=== PATIENT | female | born 1985 | race Caucasian/White ===

== ENCOUNTER 2016-12-03 06:44 | Inpatient (IN) | payer OTHER ==
[~2016-12-03] VITALS: Ht 160 cm; Wt 94.1 kg
[2016-12-03] VITALS (31 sets, daily range): BP systolic 105–152; BP diastolic 54–102
[2016-12-03 09:02] LABS: EOSINOPHIL (%) 0.7 % (0-5); EOSINOPHIL COUNT 0.1 K/uL (0-0.3); HEMATOCRIT 36.6 % (36.0-46.0); IMMATURE GRANULOCYTE (%) 0.7 % (0.0-0.7); IMMATURE GRANULOCYTE COUNT 0.1 K/uL; INSTRUMENT ABS NEUTROPHIL CT 5.7 K/uL; LYMPHOCYTE COUNT 1.9 K/uL (1.0-2.8); MCH 30.5 PG (29.0-34.0); MCHC 33.9 G/DL (30.0-36.0); MCV 90.1 FL (83-99); MEAN PLAT.VOLUME 11.4 uM^3 (9.5-12.4); MONOCYTE (%) 6.9 % (3-12); MONOCYTE COUNT 0.6 K/uL (0-0.8); NEUTROPHIL (%) 69.1 % (45-76); NEUTROPHIL COUNT 5.7 K/uL (1.8-6.4); PLATELET COUNT 201 K/uL (156-360); RBC DIS.WIDTH-CV 12.1 % (11.8-14.6); RBC DIS.WIDTH-SD 39.7 % (39-53); RED BLOOD COUNT 4.06 M/uL (3.80-5.20); WHITE BLOOD COUNT 8.3 K/uL (4.1-10.2)
[2016-12-04] VITALS (9 sets, daily range): BP systolic 100–121; BP diastolic 58–68
[2016-12-04 06:26] LABS: EOSINOPHIL (%) 0 % (0-5); HEMATOCRIT 27.9 % (36.0-46.0); IMMATURE GRANULOCYTE (%) 0.5 % (0.0-0.7); IMMATURE GRANULOCYTE COUNT 0.1 K/uL; INSTRUMENT ABS NEUTROPHIL CT 14.1 K/uL; LYMPHOCYTE COUNT 0.7 K/uL (1.0-2.8); MCH 30.9 PG (29.0-34.0); MCHC 34.1 G/DL (30.0-36.0); MCV 90.9 FL (83-99); MEAN PLAT.VOLUME 11.5 uM^3 (9.5-12.4); MONOCYTE (%) 3.8 % (3-12); MONOCYTE COUNT 0.6 K/uL (0-0.8); NEUTROPHIL (%) 91.1 % (45-76); NEUTROPHIL COUNT 14.1 K/uL (1.8-6.4); PLATELET COUNT 180 K/uL (156-360); RBC DIS.WIDTH-CV 12.3 % (11.8-14.6); RBC DIS.WIDTH-SD 40.7 % (39-53)
[2016-12-04 07:25] LABS: RED BLOOD COUNT 3.07 M/uL (3.80-5.20); WHITE BLOOD COUNT 15.4 K/uL (4.1-10.2)
[2016-12-05 03:00] VITALS: BP 103/57
[2016-12-05 07:05] VITALS: BP 108/53
[2016-12-05 14:35] VITALS: BP 124/61
[2016-12-05 19:13] VITALS: BP 116/67
[2016-12-05 22:42] VITALS: BP 112/64
[2016-12-06 03:19] VITALS: BP 107/59
[2016-12-06 07:17] VITALS: BP 113/73
[2016-12-06 11:00] VITALS: BP 118/70
[2016-12-06 19:00] VITALS: BP 118/60
[2016-12-06 23:00] VITALS: BP 116/59
[2016-12-07 03:23] VITALS: BP 109/63
[2016-12-07 07:14] VITALS: BP 86/57
[2016-12-07] MEDS ORDERED: PERCOCET 5/31 TABLET PO (09:36)
[2016-12-07] MEDS ORDERED: DOCUSATE SODIU100 MG PO (09:36)
[2016-12-07] MEDS ORDERED: IBUPROFEN800 MG PO (09:36)
[2016-12-07] MEDS ORDERED: VITAMIN C500 M1 PO (09:38)
[2016-12-07] MEDS ORDERED: FERROUS SULFAT325 MG PO (09:38)
[2016-12-07 11:00] VITALS: BP 124/75
== END 2016-12-07 13:26 | disposition home or self-care (01) | DRG 765 ==
LOC: LDRP-OP → 2WEST 06:45 → LDRP-OP 15:40 → 2WEST 22:09 → LDRP-OP 01-08 16:05
PROVIDERS: Obstetrics & Gynecology
DX: O76 Abnormality in fetal heart rate and rhythm complicating labor and delivery (principal); O99.03 Anemia complicating the puerperium; D62 Acute posthemorrhagic anemia; O69.89X0 Labor and delivery complicated by other cord complications, not applicable or unspecified; O69.82X0 Labor and delivery complicated by other cord entanglement, without compression, not applicable or unspecified; O99.62 Diseases of the digestive system complicating childbirth; K21.9 Gastro-esophageal reflux disease without esophagitis; O99.214 Obesity complicating childbirth; E66.9 Obesity, unspecified; Z68.33 Body mass index [BMI] 33.0-33.9, adult; Z37.0 Single live birth; Z3A.39 39 weeks gestation of pregnancy
CPT/HCPCS: 85025; 86850; 86900; 86901; 88307; C1755; J0595; J0690; J1100; J1200; J2175; J2274; J2405; J3010; J3105; J7120; Q0169

== ENCOUNTER 2017-12-26 16:46 | Emergency (ER) | payer OTHER ==
[~2017-12-26] VITALS: Ht 160 cm; Wt 98.2 kg
[~2017-12-26 16:46] MED LIST: DOCUSATE SODIU100 MG PO; FERROUS SULFAT325 MG PO; IBUPROFEN800 MG PO; PERCOCET 5/31 TABLET PO; VITAMIN C500 M1 PO
[2017-12-26 19:26] LABS: HEMATOCRIT 39.9 % (36.0-46.0); HEMOGLOBIN 13.9 G/DL (11.9-15.5); MCH 30.3 PG (29.0-34.0); MCHC 34.8 G/DL (30.0-36.0); MCV 87.1 FL (83-99); PLATELET COUNT 275 K/uL (156-360); RBC DIS.WIDTH-SD 38.5 % (39-53); RED BLOOD COUNT 4.58 M/uL (3.80-5.20); WHITE BLOOD COUNT 10.7 K/uL (4.1-10.2)
[2017-12-26 19:37] LABS: CHLORIDE 105 mEq/L (99-109); SODIUM 140 mEq/L (136-147)
[2017-12-26 19:39] LABS: GLUCOSE 84 mg/dL (70-99)
[2017-12-26 19:42] LABS: CREATININE 0.7 mg/dL (0.6-1.3); GFR ESTIMATE (CALCULATED) > 59 mL/min/
[2017-12-26 19:43] LABS: UREA NITROGEN (BUN) 11 mg/dL (9-23)
[2017-12-26 19:51] LABS: QUANTITATIVE HCG < 4.0 MIU/ML
[2017-12-26] MEDS ORDERED: MECLIZINE HCL25 MG PO (20:06)
[2017-12-26 20:17] VITALS: BP 124/80
== END 2017-12-26 20:19 | disposition home or self-care (01) ==
LOC: EME 16:46
PROVIDERS: Physician Assistant
DX: R42 Dizziness and giddiness (principal)
CPT/HCPCS: 80048; 84702; 85027